=== PATIENT | male | born 1990 | race Caucasian/White ===

== ENCOUNTER 2017-12-16 23:53 | Emergency (ER) | payer SELFPAY ==
[~2017-12-16] VITALS: Ht 170.2 cm; Wt 72.6 kg
[2017-12-17] MEDS ORDERED: LACTATED RINGERS 1,000 ML IV ONE (00:16)
--- NOTE | 2017-12-17 00:24 | ED Psychosocial ---
General Chief Complaint: Chest Pain Stated Complaint: CP,SOB Nursing Triage Note: pt presents to er with complaint of chest pain. per family, pt recieved news about mom in [place] country passing away and has not felt right since. 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 He was very distraught and his says that she went out of the room for a few minutes when she heard a clatter she went back in the room and he was laying on the ground moaning with his eyes closed not wanting to talk much. He does not have a history of seizures. He does have a history of diabetes and he took his single dose of metformin tonight as prescribed. He did not take any other medications and has had no suicidal ideation. The patient denies suicidal ideation. He has no history of suicide attempt. He was earlier complaining that his chest hurt and it is hard to breathe and he had a headache now he's just complaining of a headache. He took some paracetamol about an hour prior to arrival. He says it did not help his headache yet. He says he is also having a little blurry vision but no nausea vomiting fever or chills cough cold diarrhea or constipation. He does not have a history of anxiety or depression. The friend of the family who is doing interpretation feels that is likely due to the shock of having received the bad news today. He has never been hospitalized for his diabetes before nor is he had DKA but the family is aware of. He has had surgery on both of his eyes for diabetes related vision problems. Allergies and Home Medications Allergies Coded Allergies: No Known Drug Allergies (Unverified , 12/17/17) Patient Home Medication List Home Medication List Reviewed: Yes Constitutional: No chills, No diaphoresis EENTM: blurred vision; No ear discharge, No hearing loss, No ear pain, No double vision, No eye pain Respiratory: No cough, No phlegm, No short of breath, No wheezing Cardiovascular: No chest pain, No edema, No Hx of Intervention, No palpitations , No syncope, No vascular heart diseas Gastrointestinal: abdominal pain (all over just a little bit he says); No constipation, No diarrhea Genitourinary: No discharge, No dysuria Musculoskeletal: No back pain, No joint pain Skin: No pruritus, No rash Psychiatric/Neurological: Emotional Problems (acute greif), Headache; Denies Numbness, Denies Paresthesia, Denies Seizure, Denies Weakness Past Qbnrqib-Emdozh-Dwlsej Hx Patient Social History Alcohol Use: Denies Use Recreational Drug Use: No Smoking Status: Smoker Current Status [facility] Recent Foreign Travel: No Contact w/Someone Who Travel: No Recent Infectious Disease Expo: No Recent Hopitalizations: No Immunizations Up To Date Tetanus Booster (TDap): Unknown Seasonal Allergies Seasonal Allergies: No Past Medical History Surgeries: Yes Eye Surgery Cardiac: No Neurological: No Genitourinary: No Gastrointestinal: No Musculoskeletal: No Diabetes, Non-Insulin dep HEENT: No Cancer: No Physical Exam Vital Signs Vital Signs - First Documented 12/17/17 00:00 Temp 97.3 Pulse 99 Resp 20 B/P (MAP) 175/114 (134) Pulse Ox 98 O2 Delivery Room Air Capillary Refill : Less Than 3 Seconds General Appearance: WD/WN, mild distress HEENT: PERRL/EOMI, pharynx normal Neck: non-tender, normal inspection Respiratory: chest non-tender, no respiratory distress, no accessory muscle use Cardiovascular: normal peripheral pulses, regular rate, rhythm, no edema, no murmur Peripheral Pulses: 2+ Dorsalis Pedis (R), 2+ Left Dors-Pedis (L), 2+ Radial Pulses (R), 2+ Radial Pulses (L) Gastrointestinal: normal bowel sounds, soft, tenderness (mild 4 quadrants without McBurney's point tenderness, no Lovett sign or Rovsing's or psoas or other mesenteric signs.) Extremities: normal inspection, normal capillary refill Neurologic/Psychiatric: alert, oriented x 3, depressed affect Appearance/Memory: no memory impairment, disheveled Behavior/Eye Contact: cooperative, normal speech, avoids eye contact Thoughts/Hallucinations: normal thought pattern, no apparent hallucination; No delusions Skin: normal color, warm/dry Progress/Results/Core Measures Results/Orders Lab Results Laboratory Tests Test 12/17/17 00:06 12/17/17 00:59 Range/Units White Blood Count 11.5 H 4.3-11.0 10^3/uL Red Blood Count 4.99 4.35-5.85 10^6/uL Hemoglobin 15.0 13.3-17.7 G/DL Hematocrit 42 40-54 % Mean Corpuscular Volume 84 80-99 FL Mean Corpuscular Hemoglobin 30 25-34 PG Mean Corpuscular Hemoglobin Concent 36 32-36 G/DL Red Cell Distribution Width 12.7 10.0-14.5 % Platelet Count 298 130-400 10^3/uL Mean Platelet Volume 9.9 7.4-10.4 FL Neutrophils (%) (Auto) 57 42-75 % Lymphocytes (%) (Auto) 34 12-44 % Monocytes (%) (Auto) 6 0-12 % Eosinophils (%) (Auto) 2 0-10 % Basophils (%) (Auto) 1 0-10 % Neutrophils # (Auto) 6.5 1.8-7.8 X 10^3 Lymphocytes # (Auto) 3.9 1.0-4.0 X 10^3 Monocytes # (Auto) 0.7 0.0-1.0 X 10^3 Eosinophils # (Auto) 0.3 0.0-0.3 10^3/uL Basophils # (Auto) 0.1 0.0-0.1 10^3/uL Sodium Level 140 135-145 MMOL/L Potassium Level 4.0 3.6-5.0 MMOL/L Chloride Level 102 98-107 MMOL/L Carbon Dioxide Level 19 L 21-32 MMOL/L Anion Gap 19 H 5-14 MMOL/L Blood Urea Nitrogen 21 H 7-18 MG/DL Creatinine 1.21 0.60-1.30 MG/DL Estimat Glomerular Filtration Rate > 60 BUN/Creatinine Ratio 17 Glucose Level 239 H 70-105 MG/DL Glucometer 222 H 70-110 MG/DL Calcium Level 9.8 8.5-10.1 MG/DL Total Bilirubin 0.3 0.1-1.0 MG/DL Aspartate Amino Transf (AST/SGOT) 13 5-34 U/L Alanine Aminotransferase (ALT/SGPT) 15 0-55 U/L Alkaline Phosphatase 97 40-136 U/L Troponin I < 0.30 <0.30 NG/ML Total Protein 7.6 6.4-8.2 GM/DL Albumin 4.3 3.2-4.5 GM/DL Serum Alcohol < 10 <10 MG/DL Urine Color YELLOW Urine Clarity CLEAR Urine pH 7 5-9 Urine Specific Browning 1.010 L 1.016-1.022 Urine Protein 2+ H NEGATIVE Urine Glucose (UA) 4+ H NEGATIVE Urine Ketones NEGATIVE NEGATIVE Urine Nitrite NEGATIVE NEGATIVE Urine Bilirubin NEGATIVE NEGATIVE Urine Urobilinogen 1 NORMAL MG/DL Urine Leukocyte Esterase NEGATIVE NEGATIVE Urine RBC (Auto) 5+ H NEGATIVE Urine RBC 25-50 H /HPF Urine WBC NONE /HPF Urine Squamous Epithelial Cells RARE /HPF Urine Crystals NONE /LPF Urine Bacteria NEGATIVE /HPF Urine Casts NONE /LPF Urine Mucus NEGATIVE /LPF Urine Culture Indicated NO Urine Opiates Screen NEGATIVE NEGATIVE Urine Oxycodone Screen NEGATIVE NEGATIVE Urine Methadone Screen NEGATIVE NEGATIVE Urine Propoxyphene Screen NEGATIVE NEGATIVE Urine Barbiturates Screen NEGATIVE NEGATIVE Ur Tricyclic Antidepressants Screen NEGATIVE NEGATIVE Urine Phencyclidine Screen NEGATIVE NEGATIVE Urine Amphetamines Screen NEGATIVE NEGATIVE Urine Methamphetamines Screen NEGATIVE NEGATIVE Urine Benzodiazepines Screen NEGATIVE NEGATIVE Urine Cocaine Screen NEGATIVE NEGATIVE Urine Cannabinoids Screen NEGATIVE NEGATIVE My Orders Orders - WEI COBB Alcohol (12/17/17 00:16) Cbc With Automated Diff (12/17/17 00:16) Comprehensive Metabolic Panel (12/17/17 00:16) Drug Screen Stat (Urine) (12/17/17 00:16) Troponin I (12/17/17 00:16) Ua Culture If Indicated (12/17/17 00:16) Chest Pa/Lat (2 View) (12/17/17 00:16) Saline Lock/Iv-Start (12/17/17 00:16) Lactated Ringers (Lr 1000 Ml Iv Solution (12/17/17 00:16) Ibuprofen Tablet (Motrin Tablet) (12/17/17 00:30) Accucheck Stat ONCE (12/17/17 00:34) Ekg Tracing (12/17/17 00:34) Continuous Ekg Monitoring (12/17/17 00:34) Medications Given in ED Current Medications Medications Dose Ordered Sig/Cathleen Route Start Time Stop Time Status Last Admin Dose Admin Ibuprofen 800 mg ONCE ONCE PO 12/17/17 00:30 12/17/17 00:31 DC 12/17/17 00:27 800 MG Lactated Ringer's 1,000 ml @ 0 mls/hr Q0M ONCE IV 12/17/17 00:16 12/17/17 00:19 DC 12/17/17 00:27 1,000 MLS/HR Vital Signs/I&O 12/17/17 00:00 Temp 97.3 Pulse 99 Resp 20 B/P (MAP) 175/114 (134) Pulse Ox 98 O2 Delivery Room Air Blood Pressure Mean: 134 Progress Progress Note #1: Time: 00:27 Progress Note We'll obtain an EKG and troponin but he has no primary or personal history of coronary artery disease. He is no longer endorsing chest pain just headache. Can give him some ibuprofen. Some basic labs give him some fluids to try and encourage urine get a urine drug screen and an alcohol level. This seems by history to be an acute grief reaction. Plan to rule out any significant medical disorder with labs, chest x-ray and EKG. We'll get a screening visual acuity exam as well. Family says his blood sugar was 270 when they got to him and he is 222 in the ER on arrival. Progress Note #2: Time: 02:02 Progress Note We discussed the patient's asymptomatic microscopic hematuria using the language line and patient can have this followed up outpatient with urology or primary care doctor. He does not have a primary care doctor so we'll provide him with a list of available providers in the community. He says used to see a doctor and [place] before moving here and that to prescribe him the metformin. He says also having problems loose stools the past month about the same time he started the metformin at 500 once a day and now recently up to 2 times a day. We explained to him this is a typical side effect of metformin and that if he continues to push through that eventually the symptoms should resolve. We have encouraged him drink lots of fluids. He is talking much more animated and moving all 4 extremities equally and evenly. He has had all of his questions answered and like another prescription for the metformin sent while he establishes care with a new provider. Were happy to send one month supply of metformin thousand milligrams twice a day. He has been instructed that if he cannot tolerate the GI side effects that he can cut the tablet in half. Initial ECG Impression Date: Dec 16, 2017 Initial ECG Impression Time: 23:59 Initial ECG Rate: 98 Initial ECG Rhythm: Normal Sinus Initial ECG Intervals: Normal Initial ECG Impression: Normal Initial ECG Comparisson: No Previous ECG Available Comment No ST elevation or depression. Diagnostic Imaging Diagonstic Imaging: Xray Plain Films/CT/US/NM/MRI: chest (2v) Comments Poor inspiratory effort. No acute infiltrates, cardiomegaly or other acute cardiopulmonary processes noted. Reviewed: Reviewed by Me Departure Impression Primary Impression: Grief reaction Additional Impressions: Headache Qualified Codes: G44.209 - Tension-type headache, unspecified, not intractable History of diabetes mellitus, type II Asymptomatic microscopic hematuria Disposition: HOME, SELF-CARE Condition: Stable Departure-Patient Inst. Decision time for Depature: 01:40 Referrals: NO,LOCAL PHYSICIAN (PCP) Primary Care Physician ANÍBAL NAYLOR MD Patient Instructions: Blood in the Urine (Hematuria), Adult (DC), LOCAL PHYSICIAN LIST Add. Discharge Instructions: Go home and get some rest. Drink plenty of fluids. Given her headache you can use 1000 mg of Tylenol and 800 mg of the ibuprofen every 8 hours each. Avoid alcohol. Follow-up to primary care doctor as necessary. You can follow-up with your primary care doctor for the microscopic amount of blood in your urine or you can go to the urologist if you want to make an appointment with them in the next couple weeks. Dr. Naylor, urology information has been attached to your discharge paperwork. All discharge instructions reviewed with patient and/or family. Voiced understanding. Scripts Metformin HCl (Metformin HCl) 1,000 Mg Tablet 1000 MG PO BID WITH MEALS for 30 Days, #60 TAB 0 Refills Prov: WEI COBB 12/17/17 Work/School Note: Work Release Form Date Seen in the Emergency Department: Dec 17, 2017 Return to Work: Dec 18, 2017 Restrictions: No Restrictions Copy Copies To 1: ANÍBAL NAYLOR MD, TITUS J Dec 17, 2017 00:24
[2017-12-17 00:25] LABS: BASOPHILS # (AUTO) 0.1 10^3/uL (0.0-0.1); BASOPHILS % (AUTO) 1 % (0-10); EOSINOPHILS # (AUTO) 0.3 10^3/uL (0.0-0.3); EOSINOPHILS % (AUTO) 2 % (0-10); HEMATOCRIT 42 % (40-54); LYMPHOCYTES # (AUTO) 3.9 X 10^3 (1.0-4.0); LYMPHOCYTES % (AUTO) 34 % (12-44); MEAN CORPUSCULAR HEMOGLOBIN 30 PG (25-34); MEAN CORPUSCULAR HGB CONC 36 G/DL (32-36); MEAN CORPUSCULAR VOLUME 84 FL (80-99); MEAN PLATELET VOLUME 9.9 FL (7.4-10.4); MONOCYTES # (AUTO) 0.7 X 10^3 (0.0-1.0); MONOCYTES % (AUTO) 6 % (0-12); NEUTROPHILS # (AUTO) 6.5 X 10^3 (1.8-7.8); NEUTROPHILS % (AUTO) 57 % (42-75); PLATELET COUNT 298 10^3/uL (130-400); RED BLOOD COUNT 4.99 10^6/uL (4.35-5.85); RED CELL DISTRIBUTION WIDTH 12.7 % (10.0-14.5); WHITE BLOOD COUNT 11.5 10^3/uL (4.3-11.0)
[2017-12-17] MEDS ORDERED: IBUPROFEN 800 MG (MOTRIN) TAB PO ONE (00:30)
[2017-12-17 00:39] LABS: ALANINE AMINOTRANSFERASE 15 U/L (0-55); ALBUMIN 4.3 GM/DL (3.2-4.5); ALKALINE PHOSPHATASE 97 U/L (40-136); BILIRUBIN,TOTAL 0.3 MG/DL (0.1-1.0); BUN/CREATININE RATIO 17; CALCIUM 9.8 MG/DL (8.5-10.1); CARBON DIOXIDE 19 MMOL/L (21-32); CHLORIDE 102 MMOL/L (98-107); CREATININE SERUM 1.21 MG/DL (0.60-1.30); GFR ESTIMATED > 60; GLUCOSE 239 MG/DL (70-105); SODIUM 140 MMOL/L (135-145); TOTAL PROTEIN 7.6 GM/DL (6.4-8.2)
[2017-12-17 01:08] LABS: BILIRUBIN,URINE NEGATIVE (NEGATIVE); CLARITY,URINE CLEAR; COLOR,URINE YELLOW; GLUCOSE, URINE (UA) 4+ (NEGATIVE); KETONES,URINE NEGATIVE (NEGATIVE); LEUKOCYTE ESTERASE ,URINE NEGATIVE (NEGATIVE); NITRITE,URINE NEGATIVE (NEGATIVE); PH,URINE 7 (5-9); PROTEIN,URINE 2+ (NEGATIVE); UROBILINOGEN,URINE 1 MG/DL (NORMAL)
[2017-12-17 01:17] LABS: BACTERIA,URINE NEGATIVE /HPF; RBC,URINE 25-50 /HPF; SQUAMOUS EPITHELIAL CELL,UR RARE /HPF
[2017-12-17 01:37] LABS: AMPHETAMINE SCREEN, URINE NEGATIVE (NEGATIVE); BARBITURATE SCREEN URINE NEGATIVE (NEGATIVE); BENZODIAZEPINES SCREEN URINE NEGATIVE (NEGATIVE); CANNABINOID SCREEN, URINE NEGATIVE (NEGATIVE); COCAINE SCREEN URINE NEGATIVE (NEGATIVE); METHADONE STAT NEGATIVE (NEGATIVE); METHAMPHETAMINE SCREEN URINE S NEGATIVE (NEGATIVE); OPIATE SCREEN URINE NEGATIVE (NEGATIVE); OXYCODONE STAT NEGATIVE (NEGATIVE); PROPOXYPHENE STAT NEGATIVE (NEGATIVE); TRICYCLIC ANTIDEPRESSANTS SCRE NEGATIVE (NEGATIVE)
[2017-12-17] MEDS ORDERED: METF10002 PO (02:04)
[2017-12-17 02:10] VITALS: BP 155/84
--- NOTE | 2017-12-17 06:55 | Diagnostic Imaging Report ---
INDICATION: Fall with pain FINDINGS: The lungs are clear. The heart size and vascularity within normal limits. There is no effusion or pneumothorax. IMPRESSION: No acute appearing abnormality Dictated by: Dictated on workstation # [id number]
== END 2017-12-17 02:10 | disposition home or self-care (01) ==
LOC: ER 23:57
DX: F43.20 Adjustment disorder, unspecified (principal); R51 Headache; R31.21 Asymptomatic microscopic hematuria; E11.9 Type 2 diabetes mellitus without complications; Z98.890 Other specified postprocedural states
CPT/HCPCS: 36415; 71046; 80053; 80306; 80320; 81000; 82962; 84484; 85025; 93005; 96360